=== PATIENT | male | born 1960 | race Caucasian/White ===

== ENCOUNTER → 2016-03-26 | Outpatient (CLI) | payer MEDICARE, MEDICAID ==
[~2016-03-26] MED LIST: ASPIRIN ADULT L81 M3 PO; CARDI-OMEGA1000 MG PO; FOLIC ACID1 MG PO; HYDREA500 MG PO; LEVOTHYROXINE0.2 MG PO; LISINOPRIL40 MG PO; METHOTREXATE2.5 M1 PO; NAPROSYN500 MG PO; NORCO 325 MG-101 TA1 PO; NORCO 325 MG-51 TAB PO; XANAX0.5 MG PO
== END ==
LOC: RAD 16:03
DX: E03.4 Atrophy of thyroid (acquired) (principal); M06.09 Rheumatoid arthritis without rheumatoid factor, multiple sites; I10 Essential (primary) hypertension; K21.0 Gastro-esophageal reflux disease with esophagitis; F10.20 Alcohol dependence, uncomplicated; K70.0 Alcoholic fatty liver; J43.9 Emphysema, unspecified

== ENCOUNTER → 2016-05-28 | Outpatient (CLI) | payer MEDICARE, MEDICAID ==
[2014-06-28 14:46] VITALS: BP 148/100
== END ==
LOC: LAB 16:03
DX: K90.89 Other intestinal malabsorption (principal); M06.09 Rheumatoid arthritis without rheumatoid factor, multiple sites; Z12.5 Encounter for screening for malignant neoplasm of prostate; N52.03 Combined arterial insufficiency and corporo-venous occlusive erectile dysfunction; E03.4 Atrophy of thyroid (acquired)

== ENCOUNTER → 2016-06-15 | Outpatient (CLI) | payer MEDICARE, MEDICAID ==
[2014-06-28 14:46] VITALS: BP 148/100
== END ==
LOC: LAB 12:01
DX: E29.1 Testicular hypofunction (principal); R74.0 Nonspecific elevation of levels of transaminase and lactic acid dehydrogenase [LDH]

== ENCOUNTER → 2016-06-23 | Outpatient (CLI) | payer MEDICARE, MEDICAID ==
[2014-06-28 14:46] VITALS: BP 148/100
== END ==
LOC: CARDLAB 06-15 11:32
DX: G47.33 Obstructive sleep apnea (adult) (pediatric) (principal)
CPT/HCPCS: G0399

== ENCOUNTER → 2016-06-29 | Outpatient (CLI) | payer MEDICARE, MEDICAID ==
[2014-06-28 14:46] VITALS: BP 148/100
== END ==
LOC: RAD 16:10
DX: R06.09 Other forms of dyspnea (principal); M06.09 Rheumatoid arthritis without rheumatoid factor, multiple sites; R09.02 Hypoxemia

== ENCOUNTER → 2016-07-01 | Outpatient (CLI) | payer MEDICARE, MEDICAID ==
[2014-06-28 14:46] VITALS: BP 148/100
== END ==
LOC: RAD 06-22 14:00
DX: R10.84 Generalized abdominal pain (principal)
CPT/HCPCS: Q9967

== ENCOUNTER → 2016-08-12 | Outpatient (CLI) | payer MEDICARE, MEDICAID ==
[2014-06-28 14:46] VITALS: BP 148/100
== END ==
LOC: RAD 14:13
DX: F10.10 Alcohol abuse, uncomplicated (principal); K70.0 Alcoholic fatty liver; M06.09 Rheumatoid arthritis without rheumatoid factor, multiple sites; R09.02 Hypoxemia; I10 Essential (primary) hypertension

== ENCOUNTER → 2016-11-26 | Outpatient (CLI) | payer MEDICARE, MEDICAID ==
[2014-06-28 14:46] VITALS: BP 148/100
== END ==
LOC: LAB 15:36
DX: M06.9 Rheumatoid arthritis, unspecified (principal); K90.89 Other intestinal malabsorption; E03.9 Hypothyroidism, unspecified; N52.9 Male erectile dysfunction, unspecified

== ENCOUNTER 2017-03-11 11:05 | Emergency (ER) | payer MEDICARE, MEDICAID ==
[~2017-03-11] VITALS: Ht 190.5 cm; Wt 113.6 kg
[2017-03-11 12:12] LABS: HEMATOCRIT 42.8 % (42.0-52.0); HEMOGLOBIN 14.3 g/dL (13.5-18.0); MEAN CORPUSCULAR HGB CONC 33 g/dL (33-37); MEAN PLATELET VOLUME 9.5 fl (7.4-10.4); PLATELET COUNT 154 K/mm3 (130-400); RED BLOOD COUNT 3.81 M/mm3 (4.20-5.60); RED CELL DISTRIBUTION WIDTH 12.5 % (11.5-14.5); WHITE BLOOD COUNT 6.3 K/mm3 (4.8-10.8)
[2017-03-11 12:19] LABS: MEAN CELL VOLUME 112 fl (78-100); MEAN CORPUSCULAR HEMOGLOBIN 38 pg (27-31)
[2017-03-11 12:25] LABS: ALBUMIN 3.6 g/dL (3.5-5.0); CALCIUM 8.8 mg/dL (8.4-10.2); POTASSIUM 3.9 mmol/L (3.6-5.0); TOTAL BILIRUBIN 1.4 mg/dL (0.2-1.3); TOTAL PROTEIN 6.8 g/dL (6.3-8.2)
[2017-03-11 12:28] LABS: CKMB ISOENZYME 1.2 ng/mL (0.6-3.5)
[2017-03-11 12:33] LABS: TROPONIN-I < 0.03 ng/mL (0.00-0.06)
[2017-03-11 12:38] LABS: BAND 2 % (0-10); LYMPHOCYTE 12 % (20-51); MONOCYTE 15 % (3-10); NEUTROPHILS 68 % (42-75)
[2017-03-11 12:45] LABS: URINE APPEARANCE CLEAR; URINE BILIRUBIN 2+ (NEGATIVE); URINE BLOOD NEGATIVE (NEGATIVE); URINE COLOR AMBER; URINE GLUCOSE NEGATIVE (NEGATIVE); URINE KETONE 2+ (NEGATIVE); URINE LEUKOCYTE ESTERASE NEGATIVE (NEGATIVE); URINE NITRATE NEGATIVE (NEGATIVE); URINE PROTEIN(semi-quant) TRACE mg/dL (NEGATIVE); URINE UROBILINOGEN 8 mg/dL (NORMAL)
[2017-03-11 12:46] LABS: URINE MUCUS PRESENT (NOT PRESENT)
[2017-03-11 14:51] VITALS: BP 164/85
== END 2017-03-11 14:20 | disposition home or self-care (01) ==
LOC: ED 11:05
PROVIDERS: Nurse Practitioner
DX: F10.20 Alcohol dependence, uncomplicated (principal); F19.10 Other psychoactive substance abuse, uncomplicated; Y90.6 Blood alcohol level of 120-199 mg/100 ml; Z91.14 Patient's other noncompliance with medication regimen; I10 Essential (primary) hypertension; E03.9 Hypothyroidism, unspecified; M06.9 Rheumatoid arthritis, unspecified; D45 Polycythemia vera; Z88.5 Allergy status to narcotic agent; F17.200 Nicotine dependence, unspecified, uncomplicated; R10.84 Generalized abdominal pain; R11.2 Nausea with vomiting, unspecified; Z79.82 Long term (current) use of aspirin
CPT/HCPCS: J7030

== ENCOUNTER → 2017-04-18 | Outpatient (CLI) | payer MEDICARE, MEDICAID ==
[2017-04-18 16:50] LABS: HEMATOCRIT 44.6 % (42.0-52.0); HEMOGLOBIN 15.2 g/dL (13.5-18.0); MEAN CORPUSCULAR HGB CONC 34 g/dL (33-37); MEAN PLATELET VOLUME 9.3 fl (7.4-10.4); PLATELET COUNT 238 K/mm3 (130-400); RED BLOOD COUNT 4.01 M/mm3 (4.20-5.60); WHITE BLOOD COUNT 9.2 K/mm3 (4.8-10.8)
[2017-04-18 16:58] LABS: ALBUMIN 3.8 g/dL (3.5-5.0); BUN/CREATININE RATIO 10.7 (6.0-26.0); CALCIUM 8.8 mg/dL (8.4-10.2); POTASSIUM 3.9 mmol/L (3.6-5.0); TOTAL BILIRUBIN 1.5 mg/dL (0.2-1.3); TOTAL PROTEIN 7.5 g/dL (6.3-8.2)
[2017-04-18 19:14] LABS: MEAN CELL VOLUME 111 fl (78-100); MEAN CORPUSCULAR HEMOGLOBIN 38 pg (27-31)
[2017-04-18 19:21] LABS: LYMPHOCYTE 20 % (20-51); MONOCYTE 5 % (3-10); NEUTROPHILS 74 % (42-75)
== END ==
LOC: LAB 16:30
PROVIDERS: Internal Medicine
DX: M06.09 Rheumatoid arthritis without rheumatoid factor, multiple sites (principal); E03.9 Hypothyroidism, unspecified; Z88.5 Allergy status to narcotic agent

== ENCOUNTER 2017-05-03 13:00 | Observation (INO) | payer MEDICARE, MEDICAID ==
[~2017-05-03] VITALS: Ht 193 cm; Wt 121.4 kg
[~2017-05-03 13:00] MED LIST changes: +ACETAMINOPHEN-H1 TA1 PO; +BREO ELLIPTA 21 EACH IH; +ESOMEPRAZOLE MA40 M1 PO; +FISH OIL 1000MG1 CAP PO; +LOPRESSOR 550 MG/TAB PO; +MULTI-VITAMIN1 EACH PO; +ZOLPIDEM TART10 MG PO
--- NOTE | 2017-05-03 13:00 | NUR ---
Patient status changed from acute to observation.
--- NOTE | 2017-05-03 13:15 | NUR ---
Per Vidhya from outpatient surgical department, Appointment is available today at [address] Blount's PA Juanito Benítez at the outpatient clinic. Dr. Fonseca notified, and states he wants the patient to attend this appointment. Patient updated on plan of care.
--- NOTE | 2017-05-03 13:50 | NUR ---
Patient to outpatient clinic via wheelchair for appointment with YRIS Olmedo. OFFICE ASSOCIATE went with patient to appointment.
--- NOTE | 2017-05-03 14:53 | NUR ---
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
[2017-05-03 15:14] VITALS: BP 113/81
[2017-05-03 15:18] VITALS: BP 113/81
[2017-05-03 18:48] VITALS: BP 141/87
--- NOTE | 2017-05-03 19:33 | NUR ---
Bed side rounds made with Елена Jones RN. Pt awake and a/o x 3. Pt stated he was starting to feel anxious. Requested ativan. Denied need for pain medication. Stated that joint pain was 3-4 out 10.
--- NOTE | 2017-05-03 20:40 | NUR ---
2036 Pt resting in bed awake and a/o x 3. TV on. Pt given ativan 1mg PO for c/o's of feeling anxious. Offered pt evening snack, pt refused. Reminded pt that he agreed to wear C-pap and pulse monitor through out the night. Pt agreed. Then stated "I know."
--- NOTE | 2017-05-03 20:54 | NUR ---
2041 Pulse Ox on room air 97% Pulse 88.
--- NOTE | 2017-05-03 21:45 | NUR ---
Resting in bed, awake and a/o x 3. Pt requested C-pap be set up and applied. With oxygen 4L/bleed in.
--- NOTE | 2017-05-03 21:46 | NUR ---
Placed on continues pulse ox. Pulse 88, Sa02 98%.
--- NOTE | 2017-05-03 22:40 | NUR ---
Continuous pulse Ox shows Sa02 at 98% on 4L/NC. Oxygen decreased to 3L/bleed in. Pt resting in bed, eyes closed even respirations.
--- NOTE | 2017-05-03 23:06 | NUR ---
Continues to be on continuous pulse ox. Pulse 77, Sa02 99% on 4L. Wearing C-pap. Eyes closed with even respirations.
--- NOTE | 2017-05-03 23:33 | NUR ---
Continuous pulse Ox shows Sa02 at 100%, Pulse 89. Oxygen decreased to 2L/bleed in. Continues to rest in bed with eyes closed and even respirations. Pt has repositioned self.
[2017-05-03 23:35] VITALS: BP 128/84
--- NOTE | 2017-05-04 | NUR ---
Continuous pulse Ox shows Sa02 95% on 2L/bleed in. Continues to rest in bed, eyes closed even respirations. Continues to wear C-pap
--- NOTE | 2017-05-04 01:00 | NUR ---
Continuous pulse Ox shows Sa02 at 93% on 2L/bleed in. Pulse 77. Wearing C-pap. Resting in bed, eyes closed with even respirations. C-pap on.
--- NOTE | 2017-05-04 02:00 | NUR ---
Continuous pulse Ox shows 94% on 2L/bleed in. Pulse 73. C-pap on. Resting in bed, eyes closed with even respirations. Pt continues to have room privileges.
--- NOTE | 2017-05-04 03:00 | NUR ---
Continuous pulse Ox shows Sa02 98% on 2L/bleed in. Pulse 71. Resting in bed, eyes closed.
[2017-05-04 03:01] VITALS: BP 127/80
--- NOTE | 2017-05-04 06:10 | NUR ---
0600 Has been resting in bed, with C-pap machine on. Oxygen on at 2L/bleed in. Sa02 92-94% on continuous pulse Ox monitoring. Pt removed C-pap. Pt awake and a/o x 3.
--- NOTE | 2017-05-04 06:15 | NUR ---
Pt c/o of over all body and joint pain. Pt given 2 norco per pt request.
[2017-05-04 06:33] VITALS: BP 140/85
--- NOTE | 2017-05-04 06:55 | NUR ---
Dr Fonseca into see pt. Dr Fonseca informed me that pt would be D.C home today.
--- NOTE | 2017-05-04 07:22 | NUR ---
Bed side report done with Елена Jones RN. Pt awake and a/o x 3. Pt sitting up in bed with TV on. No c/o's of pain, denies nausea, denies difficulty breathing.
[2017-05-04 09:22] VITALS: BP 128/86
--- NOTE | 2017-05-04 10:46 | NUR ---
Patient alert and oriented. Rates pain 2/10 to "joints." States that he slept well last night and feels better this morning than he has for weeks. Reports "very very little" nausea. Denies emesis or abdominal pain. Patient discharged to home. Discharge instructions provided. Patient verbalizes understanding and denies questions. Home medications returned. Patient does not have usable tubing for CPAP at home. Tried to sent tubing home with patient, however he would not take it. He states that he called the company this morning and they will be delivering tubing to his home. States that he does not want CPAP tubing in the meantime. Patient called his dad to pick him up. Patient asks where he can smoke while waiting for his ride. Out of facility via wheelchair to [facility] without incident.
== END 2017-05-04 10:46 | disposition home or self-care (01) ==
LOC: MED/SURG 13:00
PROVIDERS: ADMIT Internal Medicine
DX: R11.2 Nausea with vomiting, unspecified (principal); R74.8 Abnormal levels of other serum enzymes; K59.00 Constipation, unspecified; K21.0 Gastro-esophageal reflux disease with esophagitis; R16.0 Hepatomegaly, not elsewhere classified; R10.9 Unspecified abdominal pain; K63.89 Other specified diseases of intestine; R68.81 Early satiety; F10.10 Alcohol abuse, uncomplicated; Z86.010 Personal history of colon polyps; E07.9 Disorder of thyroid, unspecified; R03.0 Elevated blood-pressure reading, without diagnosis of hypertension
CPT/HCPCS: G0378

== ENCOUNTER → 2017-05-12 | Day surgery (SDC) | payer MEDICARE, MEDICAID ==
[2017-05-04 09:22] VITALS: BP 128/86
== END ==
LOC: MSO 13:16
DX: R11.2 Nausea with vomiting, unspecified (principal); R10.9 Unspecified abdominal pain; K63.89 Other specified diseases of intestine; R16.0 Hepatomegaly, not elsewhere classified; R68.81 Early satiety; K21.0 Gastro-esophageal reflux disease with esophagitis; D12.5 Benign neoplasm of sigmoid colon; K30 Functional dyspepsia; Z86.010 Personal history of colon polyps; R19.4 Change in bowel habit; K59.00 Constipation, unspecified; K76.0 Fatty (change of) liver, not elsewhere classified; F10.10 Alcohol abuse, uncomplicated; R74.8 Abnormal levels of other serum enzymes; I10 Essential (primary) hypertension; F17.210 Nicotine dependence, cigarettes, uncomplicated; E07.9 Disorder of thyroid, unspecified; M06.9 Rheumatoid arthritis, unspecified
CPT/HCPCS: 00813; A4649; J2704; J3010; J7120

== ENCOUNTER → 2017-07-08 | Outpatient (CLI) | payer MEDICARE, MEDICAID | LOC: LAB 10:53 | DX: E03.9 Hypothyroidism, unspecified (principal) ==

== ENCOUNTER → 2017-07-26 | Outpatient (CLI) | payer MEDICARE, MEDICAID | LOC: LAB 15:51 | DX: E03.4 Atrophy of thyroid (acquired) (principal) ==

== ENCOUNTER → 2017-07-30 | Outpatient (CLI) | payer MEDICARE, MEDICAID | LOC: RAD 12:38 | DX: S93.692A Other sprain of left foot, initial encounter (principal) ==

== ENCOUNTER → 2017-08-16 | Outpatient (CLI) | payer MEDICARE, MEDICAID ==
[2017-08-16 16:47] LABS: ALBUMIN 3.8 g/dL (3.5-5.0); BUN/CREATININE RATIO 9.7 (6.0-26.0); CALCIUM 8.6 mg/dL (8.4-10.2); POTASSIUM 4.3 mmol/L (3.6-5.0); TOTAL BILIRUBIN 1.4 mg/dL (0.2-1.3); TOTAL PROTEIN 8.4 g/dL (6.3-8.2)
== END ==
LOC: LAB 15:38
PROVIDERS: Internal Medicine
DX: M06.09 Rheumatoid arthritis without rheumatoid factor, multiple sites (principal); E03.9 Hypothyroidism, unspecified; J44.9 Chronic obstructive pulmonary disease, unspecified

== ENCOUNTER → 2017-09-13 | Outpatient (CLI) | payer MEDICARE, MEDICAID ==
[2017-09-13 16:52] LABS: ALBUMIN 3.5 g/dL (3.5-5.0); BUN/CREATININE RATIO 9.2 (6.0-26.0); CALCIUM 8.5 mg/dL (8.4-10.2); POTASSIUM 4.4 mmol/L (3.6-5.0); TOTAL BILIRUBIN 1.2 mg/dL (0.2-1.3); TOTAL PROTEIN 7.7 g/dL (6.3-8.2)
== END ==
LOC: LAB 15:56
PROVIDERS: Internal Medicine
DX: E03.9 Hypothyroidism, unspecified (principal); M06.09 Rheumatoid arthritis without rheumatoid factor, multiple sites